=== PATIENT | female | born 1990 | race American Indian/Alaskan Native ===

== ENCOUNTER 2016-07-31 01:43 | Observation (INO) | payer MEDICAID, OTHER ==
[2016-07-31 01:43] VITALS: BMI 32.1
[2016-07-31] MEDS ORDERED: Albuterol-Ipratrop 3 mg / 0.5 (3 ml) UD ONE ×3 (01:54→05:40)
[2016-07-31] MEDS: Albuterol 0.083% Inhal Sol (2.5 mg/3 mL) UD INH SCH ×3 (02:10→02:17)
[2016-07-31] MEDS ORDERED: Albuterol 0.083% Inhal Sol (2.5 mg/3 mL) UD ONE (02:14)
--- NOTE | 2016-07-31 04:25 | C.PDOC ---
History Of Present Illness 26 year old patient, with a past medical history of asthma, presents to the ED complaining of a productive cough and chest congestion for the past 3 days. Patient also complains of wheezing, shortness of breath, and chest tightness. Patient used her Albuterol nebs at home several times with minimal relief. Patient denies headache or fever. Time Seen by Provider: 07/31/16 01:59 Chief Complaint (Nursing): Cough, Cold, Congestion History Per: Patient History/Exam Limitations: no limitations Onset/Duration Of Symptoms: Days (3), Worse Since (today) Current Symptoms Are (Timing): Still Present Sick Contacts (Context): None Associated Symptoms: Cough Severity: Moderate Pain Scale Rating Of: 4 Past Medical History Reviewed: Historical Data, Nursing Documentation, Vital Signs Vital Signs: Last Vital Signs Temp 97.4 F L 07/31/16 05:41 Pulse 77 07/31/16 05:41 Resp 18 07/31/16 05:41 BP 108/58 L 07/31/16 05:41 Pulse Ox 97 07/31/16 05:45 - Medical History PMH: Asthma Family History: States: Unknown Family Hx - Social History Hx Tobacco Use: Yes Hx Alcohol Use: Yes Hx Substance Use: No - Immunization History Hx Tetanus Toxoid Vaccination: No Hx Influenza Vaccination: No Hx Pneumococcal Vaccination: No Review Of Systems Except As Marked, All Systems Reviewed And Found Negative. Constitutional: Negative for: Fever Respiratory: Positive for: Cough, Shortness of Breath, Wheezing, Other (chest tightness) Neurological: Negative for: Headache Physical Exam - Physical Exam Appears: Non-toxic, No Acute Distress Skin: Warm, Dry Head: Atraumatic, Normacephalic Eye(s): bilateral: Normal Inspection, PERRL, EOMI Ear(s): Bilateral: Normal Nose: Normal Throat: Normal, No Erythema, No Exudate Neck: Normal ROM, Supple Chest: Symmetrical Cardiovascular: Rhythm Regular Respiratory: Decreased Breath Sounds, No Rales, No Rhonchi, Wheezing (diffuse expiratory), No Other (retractions) Neurological/Psych: Oriented x3, Normal Speech, Normal Cognition Gait: Steady ED Course And Treatment O2 Sat by Pulse Oximetry: 97 (RA) Pulse Ox Interpretation: Normal - Radiology CXR: Interpreted by Me, Viewed By Me CXR Interpretation: Yes: No Acute Disease Progress Note: Chest x-ray taken. Albuterol, Motrin, Benadryl and Prednisone given. Patient is given 3-4 Duonebs. Upon re-evaluation, patient is sleeping since last evaluation. Patient is now awake, coughing and complaining of recurring shortness of breath. Patient (+)wheezing (+)decreased breath sounds. Duoneb and Magnesium Sulfate given. Case discussed with Moe Tran who is aware of the plan and will admit the patient. Disposition - Disposition Disposition: HOSPITALIZED Disposition Time: 05:30 Condition: GUARDED - Clinical Impression Clinical Impression: Asthma exacerbation - PA / DERIVATIVES TRADER / Resident Statement MD/DO has reviewed & agrees with the documentation as recorded. - Scribe Statement The provider has reviewed the documentation as recorded by the Scribe Mariama Overton All medical record entries made by the Scribe were at my direction and personally dictated by me. I have reviewed the chart and agree that the record accurately reflects my personal performance of the history, physical exam, medical decision making, and the department course for this patient. I have also personally directed, reviewed, and agree with the discharge instructions and disposition.
[2016-07-31] MEDS ORDERED: Ipratropium 0.02% Inhal Soln (0.5 mg/2.5 ml) UD IH SCH (05:15)
[2016-07-31] MEDS ORDERED: Albuterol-Ipratrop 3 mg / 0.5 (3 ml) UD INH STA (05:21)
[2016-07-31 05:53] LABS: BASO % 0.3 % (0.0-2.0); EOS % 0.3 % (0.0-4.0); HEMATOCRIT 38.2 % (34.0-47.0); LYMPH # 1.4 K/uL (1.0-4.3); LYMPH % 21.3 % (20.0-40.0); MEAN CELL VOLUME 85.6 fL (81.0-99.0); MEAN CORPUSCULAR HEMOGLOBIN 28.1 pg (27.0-31.0); MEAN CORPUSCULAR HGB CONC 32.9 g/dL (33.0-37.0); MEAN PLATELET VOLUME 9.2 fL (7.2-11.7); MONO # 0.2 K/uL (0.0-0.8); MONO % 3.8 % (0.0-10.0); RED CELL DISTRIBUTION WIDTH 13.9 % (11.5-14.5); WHITE BLOOD COUNT 6.4 K/uL (4.8-10.8)
[2016-07-31] MEDS: MethylPREDNISolone 40 mg Vial IVP SCH ×4 (06:00→21:07)
[2016-07-31 06:05] LABS: CHLORIDE 102 mmol/L (98-107); SODIUM 142 mmol/L (132-148)
[2016-07-31 06:07] LABS: AST/SGOT 25 U/L (14-36); BILIRUBIN,TOTAL 0.5 mg/dL (0.2-1.3); CARBON DIOXIDE 26 mmol/L (22-30); GFR AFRICAN-AMERICAN > 60
[2016-07-31 06:08] LABS: ALB/GLOB RATIO 1.1 (1.0-2.1); ALKALINE PHOSPHATASE 67 U/L (38-126); ALT/SGPT 26 U/L (9-52); BLOOD UREA NITROGEN 9 mg/dL (7-17); CALCIUM 9.3 mg/dl (8.6-10.4); GLUCOSE,RANDOM 103 mg/dL (65-105); TOTAL PROTEIN 7.6 g/dL (6.3-8.3)
[2016-07-31 06:31] VITALS: RESP 20
--- NOTE | 2016-07-31 08:45 | RAD ---
HISTORY: pain, cough, congestion COMPARISON: 07/31/2016 TECHNIQUE: Chest PA and lateral FINDINGS: LUNGS: Mild venous congestion. Bibasilar breast and nipple shadows. PLEURA: No significant pleural effusion identified. No pneumothorax apparent. CARDIOVASCULAR: Normal. OSSEOUS STRUCTURES: No significant abnormalities. VISUALIZED UPPER ABDOMEN: Normal. OTHER FINDINGS: None. IMPRESSION: Mild venous congestion. Bibasilar breast and nipple shadows.
[2016-07-31] MEDS: Albuterol-Ipratrop 3 mg / 0.5 (3 ml) UD INH SCH ×4 (08:52→19:11)
[2016-07-31] MEDS ORDERED: MethylPREDNISolone 40 mg Vial IVP SCH (09:00)
[2016-07-31] MEDS ORDERED: Moxifloxacin IV 400mg/250ml NS 250 ML IVPB SCH (12:15)
[2016-07-31] MEDS ORDERED: guaiFENesin DM 200 mg-20 mg/10 ml UD PO SCH (12:15)
--- NOTE | 2016-07-31 13:29 | CP.PCM.HP ---
History of Present Illness - History of Present Illness History of Present Illness: COMPREHENSIVE HISTORY & PHYSICAL EXAM HPI ADMITTED FROM ER WITH ACUTE EXACERBATION OF ASTHMA , A/W COUGHING WITH WHITE EXPECTORATION PT WAS TREATED IN ER WITH MULTIPLE BROCHODILATORS WITH MINIMAL IMPROVEMENT PAST HIST. PERSONAL HIST: Smoking. N Alcohol. N Allergy N Travel_- . FAMILY HIST : ROS : Constitutional: Negative for weight change, chills, night sweats Eyes: Negative for redness, swelling, itching, discharge, vision changes, blurry vision, double vision, glaucoma, cataracts, Ears: Negative for hearing loss, ringing, , tinnitus, vertigo Nose: Negative for rhinorrhea, stuffiness, sniffing, itching, postnasal drip, discoloration, nasal congestion and epistaxis. Throat: Negative for throat clearing, sore throat, hoarseness, difficulty swallowing and difficulty speaking. Respiratory POS: for cough, chest tightness, sputum or phlegm, , NO POS hemoptysiss, wheezing NO , snoring at night, pleuritic chest pain and daytime somnolence. Cardiovascular: Negative for chest pain, palpitations, orthopnea, PND, Edema of legs, leg cramps, angina, claudication, , irregular heartbeat, Neurology: Negative for irritability, muscle weakness, numbness and tingling, seizures, tremors, migraines, slurred speech, syncope, memory loss, mood changes , recurrent headaches Gastrointestinal: Negative for difficulty swallowing, diarrhea, constipation, black stools, rectal bleeding, nausea, flatulence, reflux, poor appetite, changes in bowel habits, abdominal pain Genitourinary: Negative for frequent urination, hematuria, discharge, incontinence, urinary retention, frequent UTI, Psychiatric: Negative for depression, anxiety/panic, suicidal tendencies, Musculoskeletal: Negative for swollen joints, back pain, , neck pain, morning stiffness of joints, . Skin: Negative for rash, ulcers, itching, dry skin and pigmented lesions. P/E: Constitutional: Appears stated age and in no apparent distress. Head: Normocephalic. Ears: External ear canals patent without inflammation. Tympanic membranes intact with normal light reflex and landmark. Eyes: Pupils are central, bilaterally equal, symmetrical and reacts to light with normal movements and no icterus or pallor. Nose: External nares are patent. Mucosa is pink Mouth-Throat: Good general appearance and condition. No post-pharyngeal/oropharyngeal erythema and tonsillar hypertrophy. Good dental hygiene. Neck-Lymphatic: Neck is supple with normal ROM, no thyromegaly, lymph nodes or masses. JVD is normal with no carotid bruit. Lungs: EMERY EXP. WHEEZING Cardiovascular: S1 and S2 are normal with no murmurs, gallops and rub. GI Exam: No hepatomegaly. Abdomen is soft and non-tender. No Organomegaly , masses or hernias are evident and bowel sounds are normal and active. Neurology: Higher function and all cranial nerves intact, with no gross motor or sensory deficit. Superficial and deep reflexes are normal with downwards planters. No cerebellar deficit with normal gait. Musculoskeletal: No tender spots with normal curvature of the spine with no swelling or restricted ROM of the small and large joints. Extremities: Homans sign absent. Intact pulses with no pitting edema, calf tenderness or skin color changes. Skin: No rash, eruptions or abnormal skin pigmentation LAB/RADIOLOGY: ASSESMENT : ACUTE EXACERBATION OF BRONCHIAL ASTHMA , SEE ORDERS RESP. INFECTION , IB AB Present on Admission - Present on Admission Any Indicators Present on Admission: No Past Patient History - Infectious Disease Hx of Infectious Diseases: None - Past Social History Smoking Status: Light Smoker < 10 Cigarettes Daily - PULMONARY Hx Asthma: Yes - MUSCULOSKELETAL/RHEUMATOLOGICAL Hx Falls: No - PSYCHIATRIC Hx Substance Use: No - SURGICAL HISTORY Hx Surgeries: Yes Hx Section: Yes Other/Comment: laparoscopy - ANESTHESIA Hx Anesthesia: Yes Meds Allergies/Adverse Reactions: Allergies Allergy/AdvReac Type Severity Reaction Status Date / Time cephaclor Allergy Uncoded 07/31/16 02:00 Results - Vital Signs Recent Vital Signs: Last Vital Signs Temp 98.3 F 07/31/16 07:23 Pulse 85 07/31/16 07:23 Resp 20 07/31/16 07:23 BP 100/64 07/31/16 07:23 Pulse Ox 99 07/31/16 07:23 - Labs Result Diagrams: 07/31/16 05:50 07/31/16 05:50 Labs: Laboratory Results - last 24 hr 07/31/16 05:50 WBC 6.4 RBC 4.46 Hgb 12.5 Hct 38.2 MCV 85.6 D MCH 28.1 MCHC 32.9 L RDW 13.9 Plt Count 199 MPV 9.2 Neut % (Auto) 74.3 Lymph % (Auto) 21.3 [place] % (Auto) 3.8 Eos % (Auto) 0.3 Baso % (Auto) 0.3 Neut # 4.8 Lymph # 1.4 [place] # 0.2 Eos # 0.0 Baso # 0.0 Sodium 142 Potassium 4.0 Chloride 102 Carbon Dioxide 26 Anion Gap 18 BUN 9 Creatinine 0.7 Est GFR ( Amer) > 60 Est GFR (Non-Af Amer) > 60 Random Glucose 103 Calcium 9.3 Total Bilirubin 0.5 AST 25 ALT 26 Alkaline Phosphatase 67 Total Protein 7.6 Albumin 4.1 Globulin 3.6 Albumin/Globulin Ratio 1.1
--- NOTE | 2016-07-31 18:13 | CP.PCM.HP ---
<Brittnee Awad - Last Filed: 07/31/16 18:08> History of Present Illness - History of Present Illness History of Present Illness: CC: "SOB and cough" HPI: Patient is a 26 year old female with PMHx of asthma, seasonal allergies, endometriosis, sciatica and migraines presenting for SOB with cough for 6 days. Patient reports dry cough starting 6 days ago which progressed into a cough productive of yellow phlegm although phlegm is white today. Patient reports associated wheezing, shortness of breath and chest tightness. Patient also has reproducible anterior chest pain when she coughs. Patient reports headache when she coughs. Patient reports hot and cold chills for the past 3 days. Patient vomited on Saturday after coughing fit. Patient says the change in weather usually triggers her asthma. She uses her inhaler intermittently and sparingly because she does not like the palpitations it gives her. Patient says she uses it less than once a month. Patient has never been intubated for asthma before. Patient lives with a cat at home. Patient also reports not having a bowel movement since Saturday (3 days ago) and mild bleeding when brushing her gums for the past 3 months. Patient denies nausea, diarrhea, dysuria, rash. PMD: none right now PMHx: as above PSHx: 2 C-sections, laparascopy in February 2015 Family Hx: Mother - sleep apnea and breathing problems, grandfather - sleep apnea Social Hx: smokes 2 small cigars per day for 10 years, drinks a glass of wine and 2 shots once every two weeks socially, deines drug use, lives with her "god sister", torres Allergies: Cefaclor - hives, bisulfite - "swollen throat" Sexual History: sexually active once last week LMP: July 11-2016 Present on Admission - Present on Admission Any Indicators Present on Admission: No Review of Systems - Constitutional Constitutional: Chills. absent: Fever, Weakness - EENT Eyes: absent: Change in Vision Nose/Mouth/Throat: Bleeding Gums. absent: Sore Throat - Cardiovascular Cardiovascular: Dyspnea, Palpitations, Rapid Heart Rate. absent: Chest Pain at Rest, Leg Edema, Pedal Edema - Respiratory Respiratory: Cough, Dyspnea, Wheezing, Chest Congestion, Change in Mucous Color , Pain with Coughing - Gastrointestinal Gastrointestinal: Abdominal Pain (chronic), Constipation, Vomiting. absent: Diarrhea, Nausea - Genitourinary Genitourinary: absent: Dysuria - Reproductive: Female Reproductive:Female: Menses 1-7 Days - Musculoskeletal Musculoskeletal: Back Pain (chronic from endometriosis and sciatica). absent: Numbness - Integumentary Integumentary: absent: Rash - Neurological Neurological: Headaches (with coughing). absent: Dizziness - Endocrine Endocrine: Palpitations (after albuterol treatments). absent: Fatigue - Hematologic/Lymphatic Hematologic: Easy Bleeding (of gums where she thinks she has a cavity) Past Patient History - Infectious Disease Hx of Infectious Diseases: None - Past Medical History & Family History Past Medical History?: Yes Pertinent Family History: Mother - sleep apnea and breathing problems, grandfather - sleep apnea - Past Social History Smoking Status: Light Smoker < 10 Cigarettes Daily Alcohol: Social Drugs: Denies Home Situation {Lives}: With Family - CARDIAC Hx Cardiac Disorders: No - PULMONARY Hx Asthma: Yes - NEUROLOGICAL Other/Comment: sciatica - HEENT Other/Comment: influenza - RENAL Hx Chronic Kidney Disease: No - ENDOCRINE/METABOLIC Hx Endocrine Disorders: No - HEMATOLOGICAL/ONCOLOGICAL Hx Blood Disorders: No - INTEGUMENTARY Hx Dermatological Problems: No - MUSCULOSKELETAL/RHEUMATOLOGICAL Hx Falls: No - GASTROINTESTINAL Hx Gastrointestinal Disorders: No - GENITOURINARY/GYNECOLOGICAL Hx Genitourinary Disorders: Yes Other/Comment: endometriosis - PSYCHIATRIC Hx Substance Use: No - SURGICAL HISTORY Hx Surgeries: Yes Hx Section: Yes Other/Comment: laparoscopy - ANESTHESIA Hx Anesthesia: Yes Meds Allergies/Adverse Reactions: Allergies Allergy/AdvReac Type Severity Reaction Status Date / Time bisulfide Allergy SHORTNESS Uncoded 07/31/16 16:53 OF BREATH cephaclor Allergy SHORTNESS Uncoded 07/31/16 16:53 OF BREATH Physical Exam - Constitutional Appears: Non-toxic, No Acute Distress - Head Exam Head Exam: NORMAL INSPECTION - Eye Exam Eye Exam: EOMI - ENT Exam ENT Exam: Mucous Membranes Moist - Respiratory Exam Respiratory Exam: Decreased Breath Sounds. absent: Accessory Muscle Use, Rales , Rhonchi, Wheezes, Respiratory Distress Additional comments: coarse breath sounds bilaterally - Cardiovascular Exam Cardiovascular Exam: Tachycardia, REGULAR RHYTHM, +S1, +S2. absent: Gallop, Rubs, Systolic Murmur - GI/Abdominal Exam GI & Abdominal Exam: Normal Bowel Sounds, Soft. absent: Distended, Firm, Guarding, Tenderness - Extremities Exam Extremities exam: Positive for: normal capillary refill. Negative for: pedal edema - Neurological Exam Neurological exam: Alert, Oriented x3 - Psychiatric Exam Psychiatric exam: Normal Affect, Normal Mood - Skin Skin Exam: Normal Color, Warm Results - Vital Signs Recent Vital Signs: Last Vital Signs Temp 97.7 F 07/31/16 15:15 Pulse 107 H 07/31/16 15:15 Resp 20 07/31/16 15:15 BP 114/72 07/31/16 15:15 Pulse Ox 96 07/31/16 15:15 - Labs Result Diagrams: 07/31/16 05:50 07/31/16 05:50 Labs: Laboratory Results - last 24 hr 07/31/16 07/31/16 05:50 14:15 WBC 6.4 RBC 4.46 Hgb 12.5 Hct 38.2 MCV 85.6 D MCH 28.1 MCHC 32.9 L RDW 13.9 Plt Count 199 MPV 9.2 Neut % (Auto) 74.3 Lymph % (Auto) 21.3 [place] % (Auto) 3.8 Eos % (Auto) 0.3 Baso % (Auto) 0.3 Neut # 4.8 Lymph # 1.4 [place] # 0.2 Eos # 0.0 Baso # 0.0 Sodium 142 Potassium 4.0 Chloride 102 Carbon Dioxide 26 Anion Gap 18 BUN 9 Creatinine 0.7 Est GFR ( Amer) > 60 Est GFR (Non-Af Amer) > 60 Random Glucose 103 Calcium 9.3 Total Bilirubin 0.5 AST 25 ALT 26 Alkaline Phosphatase 67 Total Protein 7.6 Albumin 4.1 Globulin 3.6 Albumin/Globulin Ratio 1.1 Influenza Typ A,B (EIA) Negative for flu a/b Assessment & Plan - Assessment and Plan (Free Text) Assessment: 1. Ashtma exacerbation CXR 07/31/16 - mild venous congestion (please see full report) Duonebs Q6H Isacc Solumedrol 40mg IVP Q8 Mucomist Q4 Phenergan with codeine Q4H PRN cough Avelox Q24H IVPB for possible infection 2. Seasonal Allergies F/U IgE and allergen panels Loratidine 10mg PO daily 3. Constipation Colace 100mg PO BID Miralax 17gm PO daily Monitor for BM 4. Tobacco abuse F/U results of urine HCG add nicotine patch if urine HCG is negative Extensive counseling on benefits of quitting tobacco and the risks of continuing to use tobacco 5. Post-tussive emesis F/U Pertussis Ab 6. Prophylaxis Protonix 40mg PO daily SCDs <Maryam Holland V - Last Filed: 08/02/16 07:21> Results - Vital Signs Recent Vital Signs: Last Vital Signs Temp 98.4 F 08/02/16 00:00 Pulse 87 08/02/16 00:00 Resp 20 08/02/16 00:00 BP 107/71 08/02/16 00:00 Pulse Ox 96 08/02/16 00:00 - Labs Result Diagrams: 08/01/16 07:37 08/01/16 07:37 Labs: Laboratory Results - last 24 hr 08/01/16 08/01/16 07:37 14:21 WBC 22.8 H D RBC 4.48 Hgb 12.3 Hct 38.7 MCV 86.3 MCH 27.5 MCHC 31.9 L RDW 13.9 Plt Count 239 MPV 9.0 Neut % (Auto) 86.4 H Lymph % (Auto) 6.8 L [place] % (Auto) 6.7 Eos % (Auto) 0.0 Baso % (Auto) 0.1 Neut # 19.7 H Lymph # 1.6 [place] # 1.5 H Eos # 0.0 Baso # 0.0 Neutrophils % (Manual) 85 H Lymphocytes % (Manual) 8 L Monocytes % (Manual) 7 Platelet Estimate Normal RBC Morphology Normal D-Dimer, Quantitative < 200 Sodium 140 Potassium 4.3 Chloride 103 Carbon Dioxide 22 Anion Gap 20 BUN 8 Creatinine 0.6 L Est GFR ( Amer) > 60 Est GFR (Non-Af Amer) > 60 Random Glucose 129 H Calcium 9.1 Phosphorus 2.5 Magnesium 2.2 Total Bilirubin 0.2 AST 18 ALT 15 Alkaline Phosphatase 57 Total Protein 7.2 Albumin 4.0 Globulin 3.2 Albumin/Globulin Ratio 1.2 Attending/Attestation - Attestation I have personally seen and examined this patient.: Yes I have fully participated in the care of the patient.: Yes I have reviewed all pertinent clinical information: Yes Notes (Text): This is late computer entry for 07/31/16. Patient seen, examined and case discussed with day time resident. Patient seen, examined on [place] in [facility] at approximately 5:45PM. Patient transferred from private attending service onto the hospitalist service on 07/31/16. I spoke with NAZ Bond and accepted transfer from Dr. Warner's service. Patient reports shortness of breathe, patient reports hx of asthma, uncontrolled by pump, and current smoker. Patient reports nagging cough, unimproved with Promethazine. Long discussion with patient regarding tobacco cessation, given she uses 1-3 cigars a day for stress relief. As per asthma history, patient reports triggers such as sudden cold changes, has never been intubated, and prior to this episode has sparingly used her nebulizer. Patient has recently lost her insurance and needs to reapply. Patient is sexually active female, LMP: 07/11/16, patient reports she uses protection, denies OCP use , and active young lady, and is a torres by profession. Discussed admitting orders with day-time resident. Assessment/Plan 1. Asthma exacerbation CXR 07/31/16 - mild venous congestion (please see full report) Duonebs Q6H Isacc Solumedrol 40mg IVP [id number] Mucomyst [id number] to help dry secretions Phenergan with codeine Q4H PRN cough supressant Avelox 400mg IVPH Q24H (Day 1) Flu: negative 2. Cough CXR 07/31/16 - mild venous congestion (please see full report) Duonebs Q6H Isacc Solumedrol 40mg IVP [id number] Mucomyst [id number] to help dry secretions Phenergan with codeine Q4H PRN cough supressant Avelox 400mg IVPH Q24H (Day 1) 3. Seasonal Allergies F/U IgE and allergen panels-->patient understands results may not be available in-patient during her hospitalization Loratidine 10mg PO daily 4. Constipation Colace 100mg PO BID Miralax 17gm PO daily Monitor for BM 5. Tobacco abuse F/U results of urine HCG; patient reports it is unlikely she is add nicotine patch if urine HCG is negative Extensive counseling on benefits of quitting tobacco and the risks of continuing to use tobacco including but limited to cancer, premature aging, and 6. Post-tussive emesis F/U Pertussis Ab likely due to uncontrolled asthma 6. Prophylaxis Protonix 40mg PO daily for GI ppx SCDs while in bed Ambulatory 7. History of "migranes" Patient has never had a formal workup. Patient does not take any medication as outpatient for migraines
[2016-07-31] MEDS: POLYETHYLENE GLYCOL 3350 17 GM/Dose PACKET PO SCH ×2 (18:30→21:12)
[2016-07-31] MEDS: Promethazine/Cod 6.25mg-10mg/5ml Syr UD PO PRN (18:44)
[2016-07-31] MEDS: Acetylcysteine 20% Inhal Soln (4ml) INH SCH (19:11)
[2016-08-01] MEDS: Albuterol-Ipratrop 3 mg / 0.5 (3 ml) UD INH SCH ×2 (01:34→08:21)
[2016-08-01] MEDS: Acetylcysteine 20% Inhal Soln (4ml) INH SCH ×4 (01:34→20:02)
[2016-08-01] MEDS: Promethazine/Cod 6.25mg-10mg/5ml Syr UD PO PRN ×2 (02:59→21:26)
[2016-08-01] MEDS: MethylPREDNISolone 40 mg Vial IVP SCH ×3 (05:45→21:19)
[2016-08-01 07:44] LABS: BASO % 0.1 % (0.0-2.0); LYMPH # 1.6 K/uL (1.0-4.3)
[2016-08-01 07:54] LABS: CHLORIDE 103 mmol/L (98-107); POTASSIUM 4.3 mmol/L (3.6-5.2); SODIUM 140 mmol/L (132-148)
[2016-08-01 07:56] LABS: AST/SGOT 18 U/L (14-36); BILIRUBIN,TOTAL 0.2 mg/dL (0.2-1.3); CARBON DIOXIDE 22 mmol/L (22-30); GFR AFRICAN-AMERICAN > 60
[2016-08-01 07:57] LABS: ALB/GLOB RATIO 1.2 (1.0-2.1); ALKALINE PHOSPHATASE 57 U/L (38-126); ALT/SGPT 15 U/L (9-52); BLOOD UREA NITROGEN 8 mg/dL (7-17); CALCIUM 9.1 mg/dl (8.6-10.4); GLUCOSE,RANDOM 129 mg/dL (65-105); MAGNESIUM 2.2 mg/dL (1.6-2.3); PHOSPHOROUS 2.5 mg/dL (2.5-4.5); TOTAL PROTEIN 7.2 g/dL (6.3-8.3)
[2016-08-01 08:02] LABS: HEMATOCRIT 38.7 % (34.0-47.0); LYMPH % 6.8 % (20.0-40.0); MEAN CELL VOLUME 86.3 fL (81.0-99.0); MEAN CORPUSCULAR HEMOGLOBIN 27.5 pg (27.0-31.0); MEAN CORPUSCULAR HGB CONC 31.9 g/dL (33.0-37.0); MONO # 1.5 K/uL (0.0-0.8); MONO % 6.7 % (0.0-10.0); PLATELET COUNT 239 K/uL (130-400); RED CELL DISTRIBUTION WIDTH 13.9 % (11.5-14.5)
[2016-08-01 08:03] LABS: WHITE BLOOD COUNT 22.8 K/uL (4.8-10.8)
[2016-08-01 08:46] LABS: NEUTROPHIL 85 % (50-75); TOTAL CELLS COUNTED 100
[2016-08-01] MEDS: Pantoprazole 40 mg EC Tab PO SCH (11:00)
--- NOTE | 2016-08-01 16:37 | CP.PCM.PN ---
<Sagrario Flowers - Last Filed: 08/01/16 17:42> Subjective - Date & Time of Evaluation Date of Evaluation: 08/01/16 Time of Evaluation: 08:00 - Subjective Subjective: Patient seen and examined at bedside this morning. Patient states her shortness of breath has improved but that her chest still feels tight. She states that she does not like the breathing treatments because it makes her heart race. She denies all other complaints such as headaches, changes in vision, CP, palpitations, abd pain, N/V, diahhrea/constipation, urinary complaints, pain or swelling in the extremitires. Gustavo spence was called this afternoon because the patient was in an argument with her boyfriend. He was escorted out and the patient expressed she would not like him visiting her while she is in the hospital. Security was notified. Objective - Vital Signs/Intake and Output Vital Signs (last 24 hours): Temp Pulse Resp BP Pulse Ox 98.0 F 88 20 100/69 96 08/01/16 07:38 08/01/16 07:38 08/01/16 07:38 08/01/16 07:38 08/01/16 07:38 Intake and Output: 08/01/16 08/01/16 06:59 18:59 Intake Total 400 420 Balance 400 420 - Medications Medications: Current Medications Acetylcysteine (Acetylcysteine 20%) 4 ml INH Q6H [facility] Last Admin: 08/01/16 14:13 Dose: Not Given Albuterol/Ipratropium (Duoneb 3 Mg/0.5 Mg (3 Ml) Ud) 3 ml INH RQ6 PRN PRN Reason: Shortness of Breath Docusate Sodium (Colace) 100 mg PO BID [facility] Last Admin: 08/01/16 11:00 Dose: 100 mg Ibuprofen (Motrin Tab) 800 mg PO Q12 PRN PRN Reason: Pain, moderate (4-7) Influenza Virus Vaccine (Afluria) 45 mcg IM .ONCE ONE Stop: 08/02/16 10:01 Loratadine (Claritin) 10 mg PO DAILY [facility] Last Admin: 08/01/16 11:00 Dose: 10 mg Methylprednisolone (Solu-Medrol) 40 mg IVP Q8 [facility] Last Admin: 08/01/16 15:00 Dose: 40 mg Nicotine (Nicoderm Cq) 1 patch TD DAILY [facility] Last Admin: 08/01/16 11:00 Dose: 1 patch Pantoprazole Sodium (Protonix Ec Tab) 40 mg PO DAILY [facility] Last Admin: 08/01/16 11:00 Dose: 40 mg Pneumococcal Polyvalent Vaccine (Pneumovax 23 Vaccine) 0.5 ml IM .ONCE ONE Stop: 08/02/16 10:01 Promethazine HCl/Codeine (Phenergan/Codeine Oral Syrup) 5 ml PO Q4 PRN PRN Reason: Cough Last Admin: 08/01/16 02:59 Dose: 5 ml - Labs Labs: 08/01/16 07:37 08/01/16 07:37 - Constitutional Appears: Non-toxic, No Acute Distress - Head Exam Head Exam: ATRAUMATIC, NORMAL INSPECTION - Eye Exam Eye Exam: EOMI, Normal appearance, PERRL Pupil Exam: NORMAL ACCOMODATION - ENT Exam ENT Exam: Mucous Membranes Moist - Neck Exam Neck Exam: Normal Inspection - Respiratory Exam Respiratory Exam: Decreased Breath Sounds, Wheezes, NORMAL BREATHING PATTERN. absent: Accessory Muscle Use, Chest Wall Tenderness, Respiratory Distress - Cardiovascular Exam Cardiovascular Exam: REGULAR RHYTHM, +S1, +S2 - GI/Abdominal Exam GI & Abdominal Exam: Soft, Normal Bowel Sounds. absent: Distended, Firm, Guarding, Tenderness - Extremities Exam Extremities Exam: Normal Inspection. absent: Calf Tenderness, Pedal Edema - Back Exam Back Exam: NORMAL INSPECTION. absent: CVA tenderness (R), paraspinal tenderness - Neurological Exam Neurological Exam: Alert, Awake, CN II-XII Intact, Oriented x3 Neuro motor strength exam: Left Upper Extremity: 5, Right Upper Extremity: 5, Left Lower Extremity: 5, Right Lower Extremity: 5 - Psychiatric Exam Psychiatric exam: Normal Affect, Normal Mood - Skin Skin Exam: Dry, Intact, Normal Color, Warm Assessment and Plan - Assessment and Plan (Free Text) Assessment: 1. Ashtma exacerbation CXR 07/31/16 - mild venous congestion (please see full report) Duonebs Q6H prn Solumedrol 40mg IVP Q8 Mucomist Q4 Phenergan with codeine Q4H PRN cough Avelox Q24H IVPB for possible infection - discontinued - no signs of pneumonia 2. Seasonal Allergies F/U IgE and allergen panels Loratidine 10mg PO daily 3. Constipation Colace 100mg PO BID Monitor for BM+ 4. Tobacco abuse Nicotine patch 5. Post-tussive emesis F/U Pertussis Ab 6. Hx Sciatia Patient takes Motrin 800mg at home 7. Prophylaxis Protonix 40mg PO daily SCDs Regular diet <Maryam Holland V - Last Filed: 08/02/16 07:27> Objective - Vital Signs/Intake and Output Vital Signs (last 24 hours): Temp Pulse Resp BP Pulse Ox 98.4 F 87 20 107/71 96 08/02/16 00:00 08/02/16 00:00 08/02/16 00:00 08/02/16 00:00 08/02/16 00:00 Intake and Output: 08/02/16 08/02/16 06:59 18:59 Intake Total 300 Output Total 700 Balance -400 - Medications Medications: Current Medications Acetylcysteine (Acetylcysteine 20%) 4 ml INH Q6H [facility] Albuterol/Ipratropium (Duoneb 3 Mg/0.5 Mg (3 Ml) Ud) 3 ml INH RQ6 PRN PRN Reason: Shortness of Breath Last Admin: 08/01/16 20:02 Dose: 3 ml Docusate Sodium (Colace) 100 mg PO BID [facility] Last Admin: 08/01/16 17:17 Dose: 100 mg Moxifloxacin HCl (Avelox Iv 400mg/250ml Ns) 250 mls @ 167 mls/hr IVPB Q24H [facility] Ibuprofen (Motrin Tab) 800 mg PO Q12 PRN PRN Reason: Pain, moderate (4-7) Last Admin: 08/01/16 17:13 Dose: 800 mg Influenza Virus Vaccine (Afluria) 45 mcg IM .ONCE ONE Stop: 08/02/16 10:01 Loratadine (Claritin) 10 mg PO DAILY [facility] Last Admin: 08/01/16 11:00 Dose: 10 mg Methylprednisolone (Solu-Medrol) 40 mg IVP Q8 [facility] Last Admin: 08/02/16 05:30 Dose: 40 mg Nicotine (Nicoderm Cq) 1 patch TD DAILY [facility] Last Admin: 08/01/16 11:00 Dose: 1 patch Pantoprazole Sodium (Protonix Ec Tab) 40 mg PO DAILY [facility] Last Admin: 08/01/16 11:00 Dose: 40 mg Pneumococcal Polyvalent Vaccine (Pneumovax 23 Vaccine) 0.5 ml IM .ONCE ONE Stop: 08/02/16 10:01 Promethazine HCl/Codeine (Phenergan/Codeine Oral Syrup) 5 ml PO Q4 PRN PRN Reason: Cough Last Admin: 08/02/16 05:41 Dose: 5 ml - Labs Labs: 08/01/16 07:37 08/01/16 07:37 Attending/Attestation - Attestation I have personally seen and examined this patient.: Yes I have fully participated in the care of the patient.: Yes I have reviewed all pertinent clinical information, including history, physical exam and plan: Yes Notes (Text): This is late computer entry for 08/01/16. patient seen, examined and case discussed with day-time resident. Patient see at bedside in the morning, and asked boyfriend to be escorted out. Patient reports breathing is better, but the nebulizer treatments cause her heart race to race. Patient reports cough feels like productive in nature. Patient on lung exam has mildly improved air exchange will benefits from present steroid treatment. Patient reports cough improved with cough syrup. Patient had not received her nicotine patch this morning during the time of my exam. Patient informed she is not , which caused her relieft. patient reports she would like to go home but understands we need to control her asthma. Patient is ambulatory and eating well at bedside. Assessment/Plan 1. Asthma exacerbation CXR 07/31/16 - mild venous congestion (please see full report) Duonebs Q6H PRN shortness of breathe Preflow: 200 Postflow: 210/220 Solumedrol 40mg IVP [id number] Mucomyst [id number] to help dry secretions Phenergan with codeine Q4H PRN cough supressant d/c Avelox 400mg IVPH Q24H (Day 1) Flu: negative 2. Cough CXR 07/31/16 - mild venous congestion (please see full report) Duonebs Q6H [facility] Solumedrol 40mg IVP [id number] Mucomyst [id number] to help dry secretions Phenergan with codeine Q4H PRN cough supressant d/c Avelox 400mg IVPH Q24H (Day 1) Kelly received; awaiting result; patient reports she is uptodate on vaccinations 3. Seasonal Allergies F/U IgE and allergen panels-->patient understands results may not be available in-patient during her hospitalization Loratidine 10mg PO daily 4. Constipation Colace 100mg PO BID Monitor for BM 5. Tobacco abuse negative Start nictone patch to help curb tobacco cessation Extensive counseling on benefits of quitting tobacco and the risks of continuing to use tobacco including but limited to cancer, premature aging, and 7. Post-tussive emesis likely due to uncontrolled asthma no reported episodes of nausea/vomitting 8. Prophylaxis Protonix 40mg PO daily for GI ppx SCDs while in bed Ambulatory 9. History of sciatica c/w outpatient: motrin 800mg PO daily
[2016-08-01] MEDS: Albuterol-Ipratrop 3 mg / 0.5 (3 ml) UD INH PRN (20:02)
[2016-08-01] MEDS ORDERED: MethylPREDNISolone 40 mg Vial IVP SCH (22:00)
[2016-08-01] MEDS ORDERED: POLYETHYLENE GLYCOL 3350 17 GM/Dose PACKET PO ONE (22:31)
[2016-08-02] MEDS: Acetylcysteine 20% Inhal Soln (4ml) INH SCH ×3 (01:26→13:57)
[2016-08-02] MEDS: MethylPREDNISolone 40 mg Vial IVP SCH (05:30)
[2016-08-02] MEDS: Promethazine/Cod 6.25mg-10mg/5ml Syr UD PO PRN (05:41)
[2016-08-02] MEDS ORDERED: Moxifloxacin IV 400mg/250ml NS 250 ML IVPB SCH ×2 (07:30→10:00)
[2016-08-02 07:59] LABS: HEMATOCRIT 35.7 % (34.0-47.0); LYMPH # 1.7 K/uL (1.0-4.3); LYMPH % 9.3 % (20.0-40.0); MEAN CELL VOLUME 86.1 fL (81.0-99.0); MEAN CORPUSCULAR HEMOGLOBIN 28.3 pg (27.0-31.0); MEAN CORPUSCULAR HGB CONC 32.9 g/dL (33.0-37.0); MEAN PLATELET VOLUME 8.9 fL (7.2-11.7); MONO % 5.6 % (0.0-10.0); NRBC % 0.1 % (0.0-2.0); PLATELET COUNT 211 K/uL (130-400); RED CELL DISTRIBUTION WIDTH 14.1 % (11.5-14.5); WHITE BLOOD COUNT 18.1 K/uL (4.8-10.8)
[2016-08-02 08:08] LABS: CHLORIDE 100 mmol/L (98-107); POTASSIUM 4.2 mmol/L (3.6-5.2); SODIUM 139 mmol/L (132-148)
[2016-08-02 08:10] LABS: BILIRUBIN,TOTAL 0.1 mg/dL (0.2-1.3); GFR AFRICAN-AMERICAN > 60
[2016-08-02 08:11] LABS: ALB/GLOB RATIO 1.2 (1.0-2.1); ALKALINE PHOSPHATASE 52 U/L (38-126); ALT/SGPT 8 U/L (9-52); AST/SGOT 13 U/L (14-36); BLOOD UREA NITROGEN 12 mg/dL (7-17); CARBON DIOXIDE 26 mmol/L (22-30); GLUCOSE,RANDOM 107 mg/dL (65-105); PHOSPHOROUS 2.9 mg/dL (2.5-4.5); TOTAL PROTEIN 6.8 g/dL (6.3-8.3)
[2016-08-02 08:12] LABS: CALCIUM 8.7 mg/dl (8.6-10.4); MAGNESIUM 2.2 mg/dL (1.6-2.3)
[2016-08-02] MEDS: Albuterol-Ipratrop 3 mg / 0.5 (3 ml) UD INH PRN ×2 (08:20→13:57)
[2016-08-02 09:25] LABS: NEUTROPHIL 90 % (50-75); TOTAL CELLS COUNTED 100
[2016-08-02] MEDS ORDERED: Influenza Virus Vaccine 45 mcg/0.5 ml Syr IM ONE (10:00)
[2016-08-02] MEDS ORDERED: Pneumococcal 23-Valent Vaccine IM ONE (10:00)
[2016-08-02] MEDS: Pantoprazole 40 mg EC Tab PO SCH (11:39)
[2016-08-02 12:10] LABS: COW DANDER(E4)IGE <0.10 kU/L (<0.10); D.FARINAE (D2) IGE <0.10 kU/L (<0.10); DOG DANDER(E5) IGE 1.92 kU/L (<0.10); HORSE DANDER(E3)IGE 0.33 kU/L (<0.10)
[2016-08-02 13:32] LABS: A.ALTERNATA (M6) IGE <0.10 kU/L (<0.10); COTTONWOOD (T14) IGE 0.11 kU/L (<0.10); D.FARINAE (D2) IGE <0.10 kU/L (<0.10); HAZELNUT(f17) IgE 0.29 kU/L (<0.10); MAPLE (BOX ELDER) (T1)IGE 0.72 kU/L (<0.10); MILK (F2) IGE <0.10 kU/L (<0.10); MOUSE URINE PROTEINS (e72) IgE <0.10 kU/L (<0.10); OAK (T7) IGE 0.38 kU/L (<0.10); P.NOTATUM (M1) IGE <0.10 kU/L (<0.10); SHEEP SORREL (W18) IGE <0.10 kU/L (<0.10); WALNUT TREE (T10) IGE 0.11 kU/L (<0.10); WHITE ASH (T15) IGE <0.10 kU/L (<0.10)
[2016-08-02 17:14] VITALS: BP 116/76; PULSE 105; TEMP 98.8; O2SAT 96
--- NOTE | 2016-08-02 19:23 | CP.PCM.DIS ---
Provider - Provider Date of Admission: 07/31/16 05:23 Attending physician: Maryam Holland DO Primary care physician: none Consults: none Time Spent in preparation of Discharge (in minutes): 35 Diagnosis - Discharge Diagnosis (1) Asthma exacerbation Status: Acute Comment: f/u [facility]. Ventolin prn. Prednisone 40mg x 5 days. [facility] Course - Lab Results Lab Results: Most Recent Lab Values WBC 18.1 K/uL (4.8-10.8) H 08/02/16 07:47 RBC 4.15 Mil/uL (3.80-5.20) 08/02/16 07:47 Hgb 11.7 g/dL (11.0-16.0) 08/02/16 07:47 Hct 35.7 % (34.0-47.0) 08/02/16 07:47 MCV 86.1 fL (81.0-99.0) 08/02/16 07:47 MCH 28.3 pg (27.0-31.0) 08/02/16 07:47 MCHC 32.9 g/dL (33.0-37.0) L 08/02/16 07:47 RDW 14.1 % (11.5-14.5) 08/02/16 07:47 Plt Count 211 K/uL (130-400) 08/02/16 07:47 MPV 8.9 fL (7.2-11.7) 08/02/16 07:47 Neut % (Auto) 85.1 % (50.0-75.0) H 08/02/16 07:47 Lymph % (Auto) 9.3 % (20.0-40.0) L 08/02/16 07:47 [place] % (Auto) 5.6 % (0.0-10.0) 08/02/16 07:47 Eos % (Auto) 0.0 % (0.0-4.0) 08/02/16 07:47 Baso % (Auto) 0.0 % (0.0-2.0) 08/02/16 07:47 Neut # 15.4 K/uL (1.8-7.0) H 08/02/16 07:47 Lymph # 1.7 K/uL (1.0-4.3) 08/02/16 07:47 [place] # 1.0 K/uL (0.0-0.8) H 08/02/16 07:47 Eos # 0.0 K/uL (0.0-0.7) 08/02/16 07:47 Baso # 0.0 K/uL (0.0-0.2) 08/02/16 07:47 Neutrophils % (Manual) 90 % (50-75) H 08/02/16 07:47 Lymphocytes % (Manual) 9 % (20-40) L 08/02/16 07:47 Monocytes % (Manual) 1 % (0-10) 08/02/16 07:47 Platelet Estimate Normal (NORMAL) 08/02/16 07:47 RBC Morphology Normal 08/02/16 07:47 D-Dimer, Quantitative < 200 ng/mlDDU (0-243) 08/01/16 14:21 Sodium 139 mmol/L (132-148) 08/02/16 07:47 Potassium 4.2 mmol/L (3.6-5.2) 08/02/16 07:47 Chloride 100 mmol/L (98-107) 08/02/16 07:47 Carbon Dioxide 26 mmol/L (22-30) 08/02/16 07:47 Anion Gap 17 (10-20) 08/02/16 07:47 BUN 12 mg/dL (7-17) 08/02/16 07:47 Creatinine 0.7 MG/DL (0.7-1.2) 08/02/16 07:47 Est GFR ( Amer) > 60 08/02/16 07:47 Est GFR (Non-Af Amer) > 60 08/02/16 07:47 Random Glucose 107 mg/dL (65-105) H 08/02/16 07:47 Calcium 8.7 mg/dl (8.6-10.4) 08/02/16 07:47 Phosphorus 2.9 mg/dL (2.5-4.5) 08/02/16 07:47 Magnesium 2.2 mg/dL (1.6-2.3) 08/02/16 07:47 Total Bilirubin 0.1 mg/dL (0.2-1.3) L 08/02/16 07:47 AST 13 U/L (14-36) L D 08/02/16 07:47 ALT 8 U/L (9-52) L D 08/02/16 07:47 Alkaline Phosphatase 52 U/L (38-126) 08/02/16 07:47 Total Protein 6.8 g/dL (6.3-8.3) 08/02/16 07:47 Albumin 3.8 g/dL (3.5-5.0) 08/02/16 07:47 Globulin 3.0 gm/dL (2.2-3.9) 08/02/16 07:47 Albumin/Globulin Ratio 1.2 (1.0-2.1) 08/02/16 07:47 [place] Allergen IgE Ab <0.10 kU/L (<0.10) 08/01/16 07:37 [place] Hardwick Class 0 (()) 08/01/16 07:37 Cashew Allergen IgE Ab <0.10 kU/L (<0.10) 08/01/16 07:37 Cashew Hardwick Class 0 (()) 08/01/16 07:37 Codfish Allergen IgE Ab <0.10 kU/L (<0.10) 08/01/16 07:37 Codfish Hardwick Class 0 (()) 08/01/16 07:37 Egg White IgE Ab <0.10 kU/L (<0.10) 08/01/16 07:37 Egg White Hardwick Class 0 (()) 08/01/16 07:37 Hazelnut Allergen IgE 0.29 kU/L (<0.10) H 08/01/16 07:37 Hazelnut Hardwick Class 0/1 (()) H 08/01/16 07:37 Milk Allergen IgE Ab <0.10 kU/L (<0.10) 08/01/16 07:37 Milk Hardwick Class 0 (()) 08/01/16 07:37 Peanut Allergen IgE Ab <0.10 kU/L (<0.10) 08/01/16 07:37 Peanut Hardwick Class 0 (()) 08/01/16 07:37 Everest Allergen IgE Ab <0.10 kU/L (<0.10) 08/01/16 07:37 Everest Convention Class 0 (()) 08/01/16 07:37 Scallop Allergen IgE Ab <0.10 kU/L (<0.10) 08/01/16 07:37 Scallop Hardwick Class 0 (()) 08/01/16 07:37 Sesame Seed IgE Ab <0.10 kU/L (<0.10) 08/01/16 07:37 Sesame Seed Hardwick Cls 0 (()) 08/01/16 07:37 Shrimp Allergen IgE Ab <0.10 kU/L (<0.10) 08/01/16 07:37 Shrimp Hardwick Class 0 (()) 08/01/16 07:37 Soybean Allergen IgE <0.10 kU/L (<0.10) 08/01/16 07:37 Soybean Hardwick Class 0 (()) 08/01/16 07:37 Tuna Conventional Clss 0 (()) 08/01/16 07:37 Morris Allergen IgE Ab <0.10 kU/L (<0.10) 08/01/16 07:37 Morris Hardwick Class 0 (()) 08/01/16 07:37 Wheat Allergen IgE Ab <0.10 kU/L (<0.10) 08/01/16 07:37 Wheat Hardwick Class 0 (()) 08/01/16 07:37 Alternar. alternata IgE <0.10 kU/L (<0.10) 08/01/16 07:37 A.alternata Conven Cls 0 (()) 08/01/16 07:37 Aspergillus fumigatus <0.10 kU/L (<0.10) 08/01/16 07:37 A. fumigatus ASM Class 0 (()) 08/01/16 07:37 Cladosporium herbarum <0.10 kU/L (<0.10) 08/01/16 07:37 C. herbarum ASM Class 0 (()) 08/01/16 07:37 D. farinae IgE Class 0 (()) 08/01/16 07:37 D. farinae Allrgen IgE <0.10 kU/L (<0.10) 08/01/16 07:37 D. pteronyssinus Class 0 (()) 08/01/16 07:37 D. pteronyssinus IgE <0.10 kU/L (<0.10) 08/01/16 07:37 Penicillium notatum <0.10 kU/L (<0.10) 08/01/16 07:37 P, notatum ASM Class 0 (()) 08/01/16 07:37 Birch Hardwick Class 0 (()) 08/01/16 07:37 [place] Tree Allrg 0.11 kU/L (<0.10) H 08/01/16 07:37 [place] Conven Cls 0/1 (()) H 08/01/16 07:37 Elm Tree Allergen 0.20 kU/L (<0.10) H 08/01/16 07:37 Elm Hardwick Class 0/1 (()) H 08/01/16 07:37 Maple ([place]) Allg 0.72 kU/L (<0.10) H 08/01/16 07:37 Maple Convention Clss 2 (()) H 08/01/16 07:37 [place] Tree Allerg <0.10 kU/L (<0.10) 08/01/16 07:37 [place] Hardwick Class 0 (()) 08/01/16 07:37 [place] Hardwick Class 0 (()) 08/01/16 07:37 [place] Tree Allergen 0.38 kU/L (<0.10) H 08/01/16 07:37 [place] Tree ASM Class 1 (()) H 08/01/16 07:37 Silver Birch Allergen <0.10 kU/L (<0.10) 08/01/16 07:37 [place] Tree Allergen 0.75 kU/L (<0.10) H 08/01/16 07:37 [place] Hardwick Class 2 (()) H 08/01/16 07:37 Morris Tree Allergen 0.11 kU/L (<0.10) H 08/01/16 07:37 Morris Hardwick Class 0/1 (()) H 08/01/16 07:37 White Fredy Tree Allerg <0.10 kU/L (<0.10) 08/01/16 07:37 White Fredy Hardwick Clss 0 (()) 08/01/16 07:37 White [place] Allergen <0.10 kU/L (<0.10) 08/01/16 07:37 B[place] Grass Allergen 0.48 kU/L (<0.10) H 08/01/16 07:37 [place] Grass Hardwick Cl 1 (()) H 08/01/16 07:37 Omkar Grass Allergen <0.10 kU/L (<0.10) 08/01/16 07:37 Omkar Grass Cnvnt Cls 0 (()) 08/01/16 07:37 Common Pigweed Allerg <0.10 kU/L (<0.10) 08/01/16 07:37 Common Ragweed Allergen <0.10 kU/L (<0.10) 08/01/16 07:37 Comm Ragweed Cnvnt Cls 0 (()) 08/01/16 07:37 Mugwort Allergen <0.10 kU/L (<0.10) 08/01/16 07:37 Mugwort Conventional 0 (()) 08/01/16 07:37 Pigweed Conventional 0 (()) 08/01/16 07:37 Sheep Ursina Allergen <0.10 kU/L (<0.10) 08/01/16 07:37 Sheep Ursina Conven Cls 0 (()) 08/01/16 07:37 Cat Dander Allergen <0.10 kU/L (<0.10) 08/01/16 07:37 Cat Dander Hardwick Class 0 (()) 08/01/16 07:37 Cow Dander IgE Ab <0.10 kU/L (<0.10) 07/31/16 19:40 Cow Dander Hardwick Cls 0 (()) 07/31/16 19:40 Dog Dander IgE Allergen 2.30 kU/L (<0.10) H 08/01/16 07:37 Dog Dander Allerg IgG 1.92 kU/L (<0.10) H 07/31/16 19:40 Dog Dander Hardwick Cls 2 (()) H 08/01/16 07:37 Horse Dander IgE Ab 0.33 kU/L (<0.10) H 07/31/16 19:40 Horse Dander Conv Clss 0/1 (()) H 07/31/16 19:40 Mouse Urine Allergen <0.10 kU/L (<0.10) 08/01/16 07:37 Mouse Urine Conven Clss 0 (()) 08/01/16 07:37 Cockroach Allergen <0.10 kU/L (<0.10) 08/01/16 07:37 Cockroach Hardwick Clss 0 (()) 08/01/16 07:37 Monroy Brian IgE Ab 0.66 kU/L (<0.10) H 07/31/16 19:40 Eliana Torres ASM 1 (()) H 07/31/16 19:40 Urine HCG, Qual Negative (NEGATIVE) 07/31/16 22:59 IgE 33 kU/L (<wf=356) 08/01/16 07:37 Influenza Typ A,B (EIA) Negative for flu a/b (NEGATIVE) 07/31/16 14:15 - Hospital Course Hospital Course: On admission: Patient is a 26 year old female with PMHx of asthma, seasonal allergies, endometriosis, sciatica and migraines presenting for SOB with cough for 6 days. Patient reports dry cough starting 6 days ago which progressed into a cough productive of yellow phlegm although phlegm is white today. Patient reports associated wheezing, shortness of breath and chest tightness. Patient also has reproducible anterior chest pain when she coughs. Patient reports headache when she coughs. Patient reports hot and cold chills for the past 3 days. Patient vomited on Saturday after coughing fit. Patient says the change in weather usually triggers her asthma. She uses her inhaler intermittently and sparingly because she does not like the palpitations it gives her. Patient says she uses it less than once a month. Patient has never been intubated for asthma before. Patient lives with a cat at home. Patient also reports not having a bowel movement since Saturday (3 days ago) and mild bleeding when brushing her gums for the past 3 months. Patient denies nausea, diarrhea, dysuria, rash. During Hospital Stay: Patient was admitted to hospital for asthma exacerbation. CXR 07/31/16 - mild venous congestion (please see full report). She was given Duonebs and mucomyst treatments. She also received SoluMedrol IV Q8 then was tapered to Q12. She was given Avelox IVPB. She also had an allergy panel done. Patient understands results may not be available in-patient during her hospitalization. She was given Claritin. She was also put on a Nictoine patch due to her history of cigar smoking. Extensive counseling on benefits of quitting tobacco and the risks of continuing to use tobacco including but limited to cancer, premature aging, and . DDImer was negative. Flu was negative. Phernergan with codeine was given as cough suppressant. Patient is stable for discharge home today. Patient is to follow up at the [facility] for post hospital care follow up and to follow up the results of her allergy panel. Patient is to take the following medications: 1. Prednisone 40mg one by mouth daily for 5 days, no refills 2. Ventolin HFA use 1 puff every 4 hours as needed for shortness of breath of wheezing, no refills 3. Zpack - take as directed on the packet, no refills Patient is to use over the counter nicotine patches and stop smoking. Patient is to take over the counter Pepcid twice a day for one week while she is taking the steroid. Patient is to return to the emergency room if symptoms worsen or persist. All instructions explained to the patient and she agrees. Patient will need results of allergy panel to be followed up upon clinic visit. Discharge Exam - Head Exam Head Exam: ATRAUMATIC, NORMAL INSPECTION - Eye Exam Eye Exam: EOMI, Normal appearance, PERRL Pupil Exam: NORMAL ACCOMODATION - ENT Exam ENT Exam: Mucous Membranes Moist - Respiratory Exam Respiratory Exam: Decreased Breath Sounds, Clear to PA & Lateral, NORMAL BREATHING PATTERN. absent: Accessory Muscle Use, Chest Wall Tenderness, Wheezes , Respiratory Distress - Cardiovascular Exam Cardiovascular Exam: REGULAR RHYTHM, +S1, +S2 - GI/Abdominal Exam GI & Abdominal Exam: Normal Bowel Sounds, Soft. absent: Distended, Firm, Guarding, Tenderness - Extremities Exam Extremities exam: normal inspection - Back Exam Back exam: NORMAL INSPECTION. absent: CVA tenderness (L), CVA tenderness (R), paraspinal tenderness - Neurological Exam Neurological exam: Alert, CN II-XII Intact, Normal Gait, Oriented x3 - Psychiatric Exam Psychiatric exam: Normal Affect, Normal Mood - Skin Skin Exam: Dry, Intact, Normal Color, Warm Discharge Plan - Discharge Medications Prescriptions: Prednisone 40 mg PO DAILY #5 tablet Albuterol HFA [Ventolin HFA 90 mcg/actuation (8 g)] 1 puff INH Q4 PRN #1 inhaler PRN Reason: Wheezing Azithromycin [Z-Keith] 250 mg PO DAILY #6 tab - Follow Up Plan Condition: GOOD Disposition: HOME/ ROUTINE Instructions: Albuterol (By breathing), Prednisone (By mouth), Azithromycin ( By mouth), Asthma (DC) Additional Instructions: Patient is stable for discharge home. Patient is to follow up at the [facility] for post hospital care follow up and to follow up the results of her allergy panel. Patient is to take the following medications: 1. Prednisone 40mg one by mouth daily for 5 days, no refills 2. Ventolin HFA use 1 puff every 4 hours as needed for shortness of breath of wheezing, no refills 3. Zpack - take as directed on the packet, no refills Patient is to use over the counter nicotine patches and stop smoking. Patient is to take over the counter Pepcid twice a day for one week while she is taking the steroid. Patient is to return to the emergency room if symptoms worsen or persist. All instructions explained to the patient and she agrees. Referrals: [facility] at [facility] [Outside] Theresa Mathew MD [Staff Provider] -
[2016-08-02] MEDS ORDERED: MethylPREDNISolone 40 mg Vial IVP SCH (22:00)
== END 2016-08-02 18:25 | disposition home or self-care (01) ==
LOC: C.ER 01:43 → C.3T 05:23 → INTOOBSV 17:19 → OBSVTOIN 17:19 → C.3T 18:30
PROVIDERS: ADMIT Hospitalist; ATTEND Hospitalist
DX: J45.901 Unspecified asthma with (acute) exacerbation (principal)
CPT/HCPCS: 36415; 71020; 80053; 82785; 83735; 84100; 84703; 85025; 85378; 86003; 86615; 87804; 94150; 94640; 94760; 96365; 96374; 99285; G0378; J2280; J2920; J3475

== ENCOUNTER 2017-06-30 23:21 | Emergency (ER) | payer MEDICAID ==
[2017-06-30 23:22] VITALS: BMI 32.1
[2017-06-30 23:41] VITALS: PULSE 98; O2SAT 99
[2017-07-01] MEDS ORDERED: Albuterol 0.083% Inhal Sol (2.5 mg/3 mL) UD ONE ×2 (00:27→00:28)
[2017-07-01] MEDS: Albuterol 0.083% Inhal Sol (2.5 mg/3 mL) UD INH SCH ×2 (00:30→00:45)
[2017-07-01] MEDS ORDERED: Promethazine/Cod 6.25mg-10mg/5ml Syr UD PO STA ×2 (00:56→01:10)
[2017-07-01] MEDS ORDERED: Promethazine/Cod 6.25mg-10mg/5ml Syr UD ONE (01:03)
--- NOTE | 2017-07-01 02:14 | C.PDOC ---
Time Seen by Provider: 06/30/17 23:56 Chief Complaint (Nursing): Cough, Cold, Congestion Past Medical History Vital Signs: Last Vital Signs Temp 99.4 F 06/30/17 23:36 Pulse 98 H 06/30/17 23:36 Resp 18 06/30/17 23:36 BP 117/80 06/30/17 23:36 Pulse Ox 99 06/30/17 23:36 - Medical History PMH: Asthma Denies: Chronic Kidney Disease Family History: States: Unknown Family Hx - Social History Hx Tobacco Use: Yes Hx Alcohol Use: Yes Hx Substance Use: No - Immunization History Hx Tetanus Toxoid Vaccination: No Hx Influenza Vaccination: No Hx Pneumococcal Vaccination: No ED Course And Treatment O2 Sat by Pulse Oximetry: 99 Disposition Counseled Patient/Family Regarding: Diagnosis, Need For Followup, Rx Given - Disposition Referrals: [facility] [Outside] Disposition: HOME/ ROUTINE Disposition Time: 02:12 Condition: STABLE Additional Instructions: Take meds as directed Increase PO fluids Use nebulizer as needed for cough Please follow up in clinic in 1-2 days Return to ER if difficulty breathing, SOB or worse Prescriptions: Albuterol HFA [Ventolin HFA 90 mcg/actuation (8 g)] 2 puff IH [id number] #1 inhaler Benzonatate [Tessalon Perles] 100 mg PO TID #20 sgl Ibuprofen [Motrin] 600 mg PO Q6H #20 tab predniSONE [Prednisone] 40 mg PO DAILY #10 tab Instructions: Viral Upper Respiratory Infection, Adult (DC) Forms: [facility] (Malawian), Work Excuse - Clinical Impression Clinical Impression: Bronchospasm, Upper respiratory infection
--- NOTE | 2017-07-01 02:15 | C.PDOC ---
History Of Present Illness 27 year old female presents to the ED for evaluation of intermittent cough x3 weeks. Patient now complains of generalized body aches, sore throat, and subjective fever. She endorses shortness of breath and chest tightness. She has not tried any medications for cough and did not take anything prior to arrival. Time Seen by Provider: 06/30/17 23:56 Chief Complaint (Nursing): Cough, Cold, Congestion History Per: Patient History/Exam Limitations: no limitations Onset/Duration Of Symptoms: Days Current Symptoms Are (Timing): Still Present Recent travel outside of the [place]: No Past Medical History Reviewed: Historical Data, Nursing Documentation, Vital Signs Vital Signs: Last Vital Signs Temp 98.8 F 07/01/17 02:37 Pulse 98 H 07/01/17 02:37 Resp 20 07/01/17 02:37 BP 100/60 07/01/17 02:37 Pulse Ox 99 07/01/17 04:29 - Medical History PMH: Asthma Denies: Chronic Kidney Disease Family History: States: Unknown Family Hx - Social History Hx Tobacco Use: Yes Hx Alcohol Use: Yes Hx Substance Use: No - Immunization History Hx Tetanus Toxoid Vaccination: No Hx Influenza Vaccination: No Hx Pneumococcal Vaccination: No Review Of Systems Constitutional: Positive for: Fever. Negative for: Chills ENT: Positive for: Throat Pain. Negative for: Ear Pain Cardiovascular: Negative for: Chest Pain Respiratory: Positive for: Cough, Shortness of Breath, Other (Chest tightness) Gastrointestinal: Negative for: Nausea, Vomiting, Abdominal Pain, Diarrhea Musculoskeletal: Positive for: Other (diffuse myalgias ) Skin: Negative for: Rash Neurological: Negative for: Headache Physical Exam - Physical Exam Appears: Non-toxic, No Acute Distress Skin: Normal Color, Warm, Dry Head: Atraumatic, Normacephalic Eye(s): bilateral: Normal Inspection, PERRL, EOMI Nose: Normal Oral Mucosa: Moist Tongue: Normal Appearing Lips: Normal Appearing Throat: Normal, No Erythema, No Exudate Neck: Normal, Normal ROM, Supple Chest: Symmetrical Cardiovascular: Rhythm Regular (Rate Regular) Respiratory: Decreased Breath Sounds (minimally decreased bilaterally ), No Rales, Rhonchi (scattered), No Stridor, Wheezing (diffuse expiratory ) Gastrointestinal/Abdominal: Soft, No Tenderness Back: Normal Inspection Extremity: Normal ROM, No Deformity Neurological/Psych: Oriented x3, Normal Speech Gait: Steady ED Course And Treatment O2 Sat by Pulse Oximetry: 99 Progress Note: Patient is requesting rapid strep screen and notes past history of frequent strep infections. Patient given Phenergan, prednisone, and albuterol treatment. Patient in no acute resp distress. Sleeping comfortabley in the ER. All vital signs stable. Will discharge home for follow up with PMD. Return precautions discussed and understood by patient Disposition - Disposition Referrals: [facility] [Outside] Disposition: HOME/ ROUTINE Disposition Time: 04:09 Condition: STABLE Additional Instructions: Take meds as directed Increase PO fluids Use nebulizer as needed for cough Please follow up in clinic in 1-2 days Return to ER if difficulty breathing, SOB or worse Prescriptions: Albuterol HFA [Ventolin HFA 90 mcg/actuation (8 g)] 2 puff IH [id number] #1 inhaler Amoxicillin 500 mg PO TID #21 tab Benzonatate [Tessalon Perles] 100 mg PO TID #20 sgl Ibuprofen [Motrin] 600 mg PO Q6H #20 tab predniSONE [Prednisone] 40 mg PO DAILY #10 tab Instructions: Viral Upper Respiratory Infection, Adult (DC) Forms: [email or web address] [facility] ([place]ian), Work Excuse - Clinical Impression Clinical Impression: Bronchospasm, Upper respiratory infection - Scribe Statement The provider has reviewed the documentation as recorded by the Scribe (C[place] Galarza) All medical record entries made by the Scribe were at my direction and personally dictated by me. I have reviewed the chart and agree that the record accurately reflects my personal performance of the history, physical exam, medical decision making, and the department course for this patient. I have also personally directed, reviewed, and agree with the discharge instructions and disposition.
[2017-07-01 02:39] VITALS: BP 100/60; RESP 20; TEMP 98.8
--- NOTE | 2017-07-01 08:57 | RAD ---
Chest x-ray two views History: Cough. Comparison: None available. Findings: Mild venous congestion. Right hilar prominence. Tortuous aorta. Degenerative changes in the spine. Impression: Mild venous congestion. Right hilar prominence. Tortuous aorta.
== END 2017-07-01 02:39 | disposition home or self-care (01) ==
LOC: C.ER 23:21
DX: J98.01 Acute bronchospasm (principal); J06.9 Acute upper respiratory infection, unspecified